=== PATIENT | female | born 1945 | race Caucasian/White ===

== ENCOUNTER 2017-01-07 20:19 | Emergency (ER) | payer OTHER ==
[~2017-01-07] VITALS: Ht 149.9 cm; Wt 58.8 kg
[2017-01-07 20:26] VITALS: TEMP 37.1; Ht 149.9 cm; Wt 58.8 kg
--- NOTE | 2017-01-07 20:48 | EMERGENCY ROOM VISIT NOTE ---
History Report prepared by Jamaal: Tera Galaviz Under the Supervision of: Dr. Colt Shirley M.D. First contact with patient: 20:29 Chief Complaint: FLANK PAIN Stated Complaint: R SIDE FLANK PAIN History of Present Illness The patient is a 71 year old female who presents to the Emergency Room with complaints of constant, upper right quadrant, abdominal pain beginning this morning. She currently rates her discomfort a 6/10 in severity. The patient states that she has a history of pancreatitis, and her symptoms seem similar. She reports that she does not know what caused her pancreatis, she was only told her pancreas was inflamed. The patient denies back pain, leg pain edema or pain, chest pain, shortness of breath, vomiting, blood in stools, melena, and recent trauma. She also denies any history of blood clots. The patient states that she still has her gallbladder. She notes that she has a history of breast cancer and kidney stones. The patient reports that she is a summer resident here , and she flew here from [place]. Source of History: patient, family Onset: this morning Position: abdomen (RUQ) Symptom Intensity: 6/10 Timing: constant Associated Symptoms: No chest pain, No SOB, No vomiting, No back pain, No melena Note: The patient denies leg pain edema or pain, blood in stools, and recent trauma Review of Systems See HPI for pertinent positives & negatives. A total of 10 systems reviewed and were otherwise negative. Past Medical & Surgical Medical Problems: (1) Bronchitis (2) Stomach problems Old medical records were reviewed. Nurse's notes were reviewed and I agree with. Family History Diabetes mellitus FH: heart disease FHx: cancer FHx: gallbladder disease Hypertension Kidney disease Kidney stones Social History Smoking Status: Never Smoker Smokeless Tobacco Use: No Drug Use: none Current/Historical Medications Scheduled Amoxicillin & Pot Clavulanate (Augmentin 875-125 mg), 875 MG PO BID Calcium Carbonate-Cholecalcife (Caltrate 600+D), 1 TAB PO DAILY Multivitamin (Multivitamin), 1 TAB PO DAILY Allergies Coded Allergies: No Known Allergies (Unverified , 01/07/17) Physical Exam Vital Signs Date Time Temp Pulse Resp B/P (MAP) Pulse Ox O2 Delivery O2 Flow Rate FiO2 01/08/17 00:51 99 18 145/58 96 Room Air 01/08/17 00:31 86 16 148/83 97 Room Air 01/07/17 22:38 100 16 160/106 96 01/07/17 20:26 37.1 93 18 138/63 96 Room Air Physical Exam General: Well developed well nourished in no acute distress, breathing comfortably on room air. Normal speech. Mildly ill-appearing, older female HEENT: Normal cephalic atraumatic. Pupils are equal round and reactive to light. Sclerae anicteric. Extraocular movements are intact. Oropharynx is pink with moist mucous membranes. No swelling of the mouth lips or tongue. Neck: Supple with a midline trachea. No meningeal signs or stiffness, no JVD or bruits. No Stridor. Chest: Clear to auscultation bilaterally. No wheezes or rhonchi. No increased work of breathing. Heart: regular rate and rhythm. Abdomen: Soft, nondistended without rebound guarding or rigidity. Right upper quadrant tenderness, no lower abdominal tenderness, negative Hudson's sign. Extremities: No cyanosis clubbing or edema. No calf tenderness or assymetry Spine/Back. Non tender to palpation. No CVA tenderness Skin: Good turgor without rashes. Neurologic exam: Cranial nerves two through 12 are intact. Motor and sensation are intact and symmetrical throughout. Medical Decision & Procedures ER Provider Diagnostic Interpretation: Radiology results as stated below per my review and radiologist interpretation: CHEST ONE VIEW PORTABLE CLINICAL HISTORY: CHEST PAIN dyspnea COMPARISON STUDY: No previous studies for comparison. FINDINGS: Heart is top limits normal terms of size. Pulmonary vasculature is somewhat prominent. Potential developing parenchymal infiltrates lung bases. IMPRESSION: Developing basilar parenchymal infiltrates versus early congestive failure. Electronically signed by: Ander Friedman M.D. 01/07/2017 9:17 PM Dictated Date/Time: 01/07/2017 9:17 PM My interpretations: Possible infiltrate in the base bilaterally, no pneumothorax , no CHF CHEST CTA for PULMONARY ARTERIES CT DOSE: HISTORY: Chest pain dyspnea TECHNIQUE: Multiaxial CT images of the chest were performed following the intravenous administration of contrast to evaluate the pulmonary arteries. Maximal intensity projection images were also obtained. COMPARISON STUDY: None. FINDINGS: There is a normal caliber thoracic aorta with no evidence for dissection. There is no evidence for pulmonary embolus. No pleural effusions. No pneumothorax. The liver and spleen are unremarkable. No mediastinal or hilar lymphadenopathy. The central airways are patent. The lungs show evidence for emphysematous change as well as several pleural-based and parenchymal scars on the right upper lung and basilar regions. Developing interstitial infiltrative changes at both lung bases. IMPRESSION: 1. No evidence for pulmonary embolus. 2. Emphysematous change. 3. Developing interstitial infiltrative changes at both lung bases. Electronically signed by: Ander Friedman M.D. 01/07/2017 10:41 PM Dictated Date/Time: 01/07/2017 10:39 PM ABDOMEN AND PELVIS CT WITH IV CONTRAST CT DOSE: 674.04 mGy.cm HISTORY: Pain eval for GB disease, pancreatitis, AAA, kidney stone TECHNIQUE: Multiaxial CT images of the abdomen and pelvis were performed following the use of intravenous contrast. COMPARISON STUDY: None. FINDINGS: Interstitial changes both lung bases mild fatty infiltration of liver. Kidneys negative for hydronephrosis. Pancreas is uniform. The bowel pattern within the abdomen and pelvis is nonobstructive. There is a 4 cm left ovarian cyst. Scattered colonic diverticuli with no evidence for diverticulitis. Study is negative for appendicitis. IMPRESSION: 1. 4 cm left ovarian cyst. 2. Scattered colonic diverticulosis with no evidence for diverticulitis. 3. Nonobstructive bowel pattern. 4. Bibasilar interstitial change of the lung bases. Electronically signed by: Ander Friedman M.D. 01/07/2017 10:43 PM Dictated Date/Time: 01/07/2017 10:41 PM Laboratory Results 01/07/17 21:00 Red Blood Count 4.44, Mean Corpuscular Volume 93.5, Mean Corpuscular Hemoglobin 30.0, Mean Corpuscular Hemoglobin Concent 32.0, Mean Platelet Volume 9.9, Neutrophils (%) (Auto) 79.4, Lymphocytes (%) (Auto) 9.9, Monocytes (%) (Auto) 8.7, Eosinophils (%) (Auto) 1.4, Basophils (%) (Auto) 0.5, Neutrophils # (Auto) 8.82, Lymphocytes # (Auto) 1.10, Monocytes # (Auto) 0.97, Eosinophils # (Auto) 0.15, Basophils # (Auto) 0.05 01/07/17 21:00 Test 01/07/17 20:40 01/07/17 21:00 01/07/17 21:10 Urine Color YELLOW Urine Appearance CLEAR (CLEAR) Urine pH 5.0 (4.5-7.5) Urine Specific [place] 1.018 (1.000-1.030) Urine Protein NEG (NEG) Urine Glucose (UA) NEG (NEG) Urine Ketones NEG (NEG) Urine Occult Blood TRACE (NEG) Urine Nitrite NEG (NEG) Urine Bilirubin NEG (NEG) Urine Urobilinogen NEG (NEG) Urine Leukocyte Esterase MODERATE (NEG) Urine WBC (Auto) 5-10 /hpf (0-5) Urine RBC (Auto) 0-4 /hpf (0-4) Urine Hyaline Casts (Auto) 1-5 /lpf (0-5) Urine Epithelial Cells (Auto) >30 /lpf (0-5) Urine Bacteria (Auto) NEG (NEG) White Blood Count 11.10 K/uL (4.8-10.8) Red Blood Count 4.44 M/uL (4.2-5.4) Hemoglobin 13.3 g/dL (12.0-16.0) Hematocrit 41.5 % (37-47) Mean Corpuscular Volume 93.5 fL (80-100) Mean Corpuscular Hemoglobin 30.0 pg (25-34) Mean Corpuscular Hemoglobin Concent 32.0 g/dl (32-36) Platelet Count 302 K/uL (130-400) Mean Platelet Volume 9.9 fL (7.4-10.4) Neutrophils (%) (Auto) 79.4 % Lymphocytes (%) (Auto) 9.9 % Monocytes (%) (Auto) 8.7 % Eosinophils (%) (Auto) 1.4 % Basophils (%) (Auto) 0.5 % Neutrophils # (Auto) 8.82 K/uL (1.4-6.5) Lymphocytes # (Auto) 1.10 K/uL (1.2-3.4) Monocytes # (Auto) 0.97 K/uL (0.11-0.59) Eosinophils # (Auto) 0.15 K/uL (0-0.5) Basophils # (Auto) 0.05 K/uL (0-0.2) RDW Standard Deviation 48.5 fL (36.4-46.3) RDW Coefficient of Variation 14.1 % (11.5-14.5) Immature Granulocyte % (Auto) 0.1 % Immature Granulocyte # (Auto) 0.01 K/uL (0.00-0.02) Anion Gap 7.0 mmol/L (3-11) Est Creatinine Clear Calc Drug Dose 37.2 ml/min Estimated GFR () 58.9 Estimated GFR (Non- 50.8 BUN/Creatinine Ratio 16.5 (10-20) Calcium Level 9.2 mg/dl (8.5-10.1) Total Bilirubin 0.4 mg/dl (0.2-1) Direct Bilirubin 0.1 mg/dl (0-0.2) Aspartate Amino Transf (AST/SGOT) 12 U/L (15-37) Alanine Aminotransferase (ALT/SGPT) 19 U/L (12-78) Alkaline Phosphatase 116 U/L (45-117) Total Protein 7.2 gm/dl (6.4-8.2) Albumin 3.8 gm/dl (3.4-5.0) Lipase 376 U/L (73-393) Bedside D-Dimer > 450 ng/mlFEU (0-450) Bedside Troponin I < 0.030 ng/ml (0-0.045) Laboratory studies as stated above per my review. Medications Administered Medications (Trade) Dose Ordered Sig/Elia Route Start Time Stop Time Status Last Admin Dose Admin Sodium Chloride 1,000 ml @ 999 mls/hr Q1H1M STAT IV 01/07/17 20:56 01/07/17 21:56 DC 01/07/17 21:26 999 MLS/HR Sodium Chloride 1,000 ml @ 150 mls/hr Q6H40M ONCE IV 01/07/17 20:56 01/08/17 03:35 01/07/17 21:50 150 MLS/HR ECG Indication: abdominal pain Rate (beats per minute): 79 Rhythm: normal sinus Findings: no acute ischemic change, no ectopy Comparison ECG Date: no prior available ED Course 2031: Past medical records reviewed. The patient was evaluated in room C03, and a complete history and physical examination were performed. 2055: Ordered Sodium Chloride 1000 ml @ 150 mls/hr IV, Sodium Chloride 1000 ml @ 999 mls/hr IV 2149: I reevaluated the patient, and I discussed current exam findings. She is resting. 2303: I reevaluated the patient, and she is doing much better. 0027: Upon reevaluation, the patient is resting and in no distress. I discussed the results and treatment plan with her. She verbalized agreement of the treatment plan. Case management is working on getting her a follow up. The patient will be discharged home when she receives her medication. 0050: Ordered Augmentin 875mg Home Pack 1 homepack PO Medical Decision Differential diagnosis includes: pancreatitis, gallbladder disease, pneumothorax , pulmonary embolism, kidney stones, infection. Medication Reconciliation: I attest that I have personally reviewed the patient' s current medication list. Blood pressure Screening: Patient was found to have normal blood pressure on screening and does not require follow-up. This patient comes in as described above . She is right lower chest/right upper abdominal pain. She feels like this may be like pancreatitis. She had before and she looks well on exam . She's had no fever chills or nausea vomiting . She has had bronchitis several times is here. She is not coughing at present. IV access was established, EKG chest x-ray multiple blood tests was obtained. She has nothing to suggest acute coronary syndrome or arrhythmia and has a nonischemic appearing EKG. Her d- dimer is mildly elevated and in light of this I did a chest CT as well as abdominal CT. She has no evidence of PE or any other acute intra-abdominal process. She does have some infiltrates in the bases. Clinically, she is not really acting like pneumonia although has had some coughing at one point and I will put her on Augmentin to cover this possibility. She's given the first dose here as well as a prescription to go home with. She has nothing to suggest pancreatitis at this point. Her lipase is normal and there is nothing on CAT scan to suggest this. There is nothing to suggest a UTI and her urinalysis is suboptimal with a culture pending. She talked to her case management team to help arrange follow-up this week for recheck and was encouraged to return if: increasing pain, shortness of breath, worsening symptoms, any new problems or concerns. she can use [id number] Tylenol/ ibuprofen if needed for pain but do not exceed [id number] recommended dosages. Impression Primary Impression: Right-sided chest pain Additional Impression: PNA (pneumonia) Scribe Attestation The scribe's documentation has been prepared under my direction and personally reviewed by me in its entirety. I confirm that the note above accurately reflects all work, treatment, procedures, and medical decision making performed by me. Departure Information Dispostion Home / Self-Care Prescriptions Amoxicillin & Pot Clavulanate (Augmentin 875-125 mg) 1 Tab Tab 875 MG PO BID for 10 Days, #20 TAB Prov: Colt Shirley M.D. 01/08/17 Referrals No Doctor, Assigned (PCP) Forms HOME CARE DOCUMENTATION FORM, IMPORTANT VISIT INFORMATION Patient Instructions My [facility] Additional Instructions Rest. REturn if: worsening of symptoms, fever, shortness of breath, any new problems or concerns. May use [id number] Tylenol and/or ibuprofen if needed for pain. Do not exceed the [id number] recommended dosages for these medications Do not take Tylenol with any other medications that contain Tylenol/ acetaminophen Use Augmentin 875 mg twice a day for 10 days Follow-up with a local doctor this coming week for recheck or return here at any point if symptoms worsen. Problem Qualifiers
[2017-01-07] MEDS ORDERED: CALC-354 PO (20:56)
[2017-01-07] MEDS ORDERED: SODIUM CHLORIDE 0.9% 1000ML 1,000 ML IV ONE (20:56)
[2017-01-07] MEDS ORDERED: MULT-506 PO (20:56)
[2017-01-07] MEDS ORDERED: SODIUM CHLORIDE 0.9% 1000ML 1,000 ML IV STA (20:56)
[2017-01-07 21:16] LABS: BASO % 0.5 %; BASO ABS # 0.05 K/uL (0-0.2); COMPLETE YES; EOS % 1.4 %; HEMATOCRIT 41.5 % (37-47); IG% 0.1 %; LYMPH % 9.9 %; MEAN CELL VOLUME 93.5 fL (80-100); MEAN PLATELET VOLUME 9.9 fL (7.4-10.4); MONO % 8.7 %; NEUT % 79.4 %; PLATELET COUNT 302 K/uL (130-400); RED BLOOD COUNT 4.44 M/uL (4.2-5.4)
--- NOTE | 2017-01-07 21:19 | DIAGNOSTIC IMAGING REPORT ---
CHEST ONE VIEW PORTABLE CLINICAL HISTORY: CHEST PAIN dyspnea COMPARISON STUDY: No previous studies for comparison. FINDINGS: Heart is top limits normal terms of size. Pulmonary vasculature is somewhat prominent. Potential developing parenchymal infiltrates lung bases. IMPRESSION: Developing basilar parenchymal infiltrates versus early congestive failure. Electronically signed by: Ander Friedman M.D. 01/07/2017 9:17 PM Dictated Date/Time: 01/07/2017 9:17 PM
[2017-01-07 21:29] LABS: POINT OF CARE TROPONIN I < 0.030 ng/ml (0-0.045)
[2017-01-07 21:32] LABS: BUN/CREATININE RATIO 16.5 (10-20); CREATININE 1.1 mg/dl (0.60-1.20); POTASSIUM 4.1 mmol/L (3.5-5.1)
[2017-01-07 22:06] LABS: URINE APPEARANCE CLEAR (CLEAR); URINE BILIRUBIN NEG (NEG); URINE COLOR YELLOW; URINE EPITHELIAL CELL AUTO >30 /lpf (0-5); URINE NITRITE NEG (NEG); URINE SPECIFIC GRAVITY 1.018 (1.000-1.030); UROBILINOGEN NEG (NEG)
[2017-01-07 22:07] LABS: MANUAL MICROSCOPIC REQUIRED? NO; REVIEW REQ? NO
[2017-01-07 22:17] LABS: CALCIUM 9.2 mg/dl (8.5-10.1)
--- NOTE | 2017-01-07 22:42 | DIAGNOSTIC IMAGING REPORT ---
CHEST CTA for PULMONARY ARTERIES CT DOSE: HISTORY: Chest pain dyspnea TECHNIQUE: Multiaxial CT images of the chest were performed following the intravenous administration of contrast to evaluate the pulmonary arteries. Maximal intensity projection images were also obtained. COMPARISON STUDY: None. FINDINGS: There is a normal caliber thoracic aorta with no evidence for dissection. There is no evidence for pulmonary embolus. No pleural effusions. No pneumothorax. The liver and spleen are unremarkable. No mediastinal or hilar lymphadenopathy. The central airways are patent. The lungs show evidence for emphysematous change as well as several pleural-based and parenchymal scars on the right upper lung and basilar regions. Developing interstitial infiltrative changes at both lung bases. IMPRESSION: 1. No evidence for pulmonary embolus. 2. Emphysematous change. 3. Developing interstitial infiltrative changes at both lung bases. Electronically signed by: Ander Friedman M.D. 01/07/2017 10:41 PM Dictated Date/Time: 01/07/2017 10:39 PM
[2017-01-07] MEDS ORDERED: OPTIRAY 320 IV PRN (22:45)
--- NOTE | 2017-01-07 22:45 | DIAGNOSTIC IMAGING REPORT ---
ABDOMEN AND PELVIS CT WITH IV CONTRAST CT DOSE: 674.04 mGy.cm HISTORY: Pain eval for GB disease, pancreatitis, AAA, kidney stone TECHNIQUE: Multiaxial CT images of the abdomen and pelvis were performed following the use of intravenous contrast. COMPARISON STUDY: None. FINDINGS: Interstitial changes both lung bases mild fatty infiltration of liver. Kidneys negative for hydronephrosis. Pancreas is uniform. The bowel pattern within the abdomen and pelvis is nonobstructive. There is a 4 cm left ovarian cyst. Scattered colonic diverticuli with no evidence for diverticulitis. Study is negative for appendicitis. IMPRESSION: 1. 4 cm left ovarian cyst. 2. Scattered colonic diverticulosis with no evidence for diverticulitis. 3. Nonobstructive bowel pattern. 4. Bibasilar interstitial change of the lung bases. Electronically signed by: Ander Friedman M.D. 01/07/2017 10:43 PM Dictated Date/Time: 01/07/2017 10:41 PM
[2017-01-08] MEDS ORDERED: AMOX875T PO (00:40)
[2017-01-08] MEDS ORDERED: AMOXICIL/CLAVU 875MG HOME PACK PO ONE (00:50)
[2017-01-08 00:51] VITALS: BP 145/58; PULSE 99; O2SAT 96
[2017-01-08] MEDS ORDERED: AMOXICILLIN/CLAVULANATE TAB 875 MG TAB PO ONE (09:00)
== END 2017-01-08 00:53 | disposition home or self-care (01) ==
LOC: C.EDB 20:21 → C.EDC 01-08 00:53
DX: R07.9 Chest pain, unspecified (principal); J18.9 Pneumonia, unspecified organism; Z83.3 Family history of diabetes mellitus; Z82.49 Family history of ischemic heart disease and other diseases of the circulatory system; N83.202 Unspecified ovarian cyst, left side